=== PATIENT | female | born 1985 | race Caucasian/White ===

== ENCOUNTER 2017-03-04 09:38 | Emergency (ER) | payer MEDICAID ==
[2017-03-04] MEDS ORDERED: Ketorolac Tromethamine 30 MG/ML VIAL ONE (11:34)
== END 2017-03-04 12:28 | disposition home or self-care (01) ==
LOC: ERS 09:38
DX: K02.9 Dental caries, unspecified (principal); K04.7 Periapical abscess without sinus
CPT/HCPCS: J1885

== ENCOUNTER 2017-03-04 23:44 | Emergency (ER) | payer MEDICAID ==
[2017-03-05] MEDS ORDERED: HYDROcodone/Acetaminophen 10/325 mg Tablet ONE (00:32)
== END 2017-03-05 00:42 | disposition home or self-care (01) ==
LOC: ERS 23:44
DX: K02.9 Dental caries, unspecified (principal); Z79.1 Long term (current) use of non-steroidal anti-inflammatories (NSAID)
CPT/HCPCS: 96372; 99282; J1885